=== PATIENT | male | born 1945 | race Two or more races ===

== ENCOUNTER 2024-10-29 07:16 | Emergency (ER) | payer OTHER ==
[~2024-10-29] VITALS: Ht 175.3 cm; Wt 70.8 kg
[2024-10-29] MEDS ORDERED: HYDROCHLOROTHIA25 MG PO (07:39)
[2024-10-29] MEDS ORDERED: VASOTEC20 MG PO (07:39)
[2024-10-29] MEDS ORDERED: PROTONIX20 MG (07:40)
[2024-10-29] MEDS ORDERED: TETANUS & DIPHTHERIA TOX,ADULT 0.5 ML VIAL IM STA (08:26)
[2024-10-29] MEDS ORDERED: CEFTRIAXONE SODIUM 2,000 MG VIAL IV ONE (08:30)
== END 2024-10-29 13:11 | disposition home or self-care (01) ==
LOC: ER 07:19
DX: S61.219A Laceration without foreign body of unspecified finger without damage to nail, initial encounter (principal); W27.0XXA Contact with workbench tool, initial encounter; Y93.89 Activity, other specified; Y92.89 Other specified places as the place of occurrence of the external cause; Y99.8 Other external cause status; I10 Essential (primary) hypertension
CPT/HCPCS: 73120; 90471; 90714; 96365; 96372; 99283; J0696; J1670